=== PATIENT | male | born 1970 | race Caucasian/White ===

== ENCOUNTER 2017-05-20 08:03 | Day surgery (SDC) | payer OTHER ==
[2017-05-20] MEDS ORDERED: NS 1000 ML 1,000 ML ONE (08:11)
[2017-05-20] MEDS ORDERED: DIPRIVAN VIAL 20 ML ONE ×2 (10:09→10:27)
[2017-05-20] MEDS ORDERED: XYLOCAINE 2 % (PLAIN) ONE (10:09)
[2017-05-20] MEDS ORDERED: DIPRIVAN VIAL 10 ML ONE (10:41)
--- NOTE | 2017-05-20 11:05 | OR.GENERIC ---
Post-Op Note Generic - Post-Op Note Operative Report: Procedure Note May 20, 2017 Pre-Operative Diagnosis: Screening colonoscopy. Post-Operative Diagnosis: 1. Sigmoid polyp at 25 cm. 2. Grade I internal hemorrhoids. Procedure: Colonoscopy to cecum with polypectomy (cold biopsy forceps). Surgeon: Jairon Niño MD. Psychiatric Nurse Practitioner: Mykel Workman CRNA. Specimens: Sigmoid polyp at 25 cm. Estimated blood loss: Minimal. Complications: None. Summary: The patient is a 46 year old male who presented for a screening colonoscopy. The risk and benefits of the procedure including difficulty with anesthesia, bleeding, infection, as well as perforation were discussed with the patient. The patient understood these risks and requested the procedure. On May 20, 2017, the patient was brought to the endoscopy suite. A time out was performed verifying the patient and procedure. The patient was placed in a left lateral decubitus position. After satisfactory induction of monitored anesthesia care, a rectal exam was performed. The prostate was noted to be diffusely enlarged. Next, an endoscopy was advanced through the anus and directed to the cecum without difficulty. The scope was then withdrawn viewing all mucosal surfaces. The patients prep was adequate. The cecum, ascending, transverse, as well as descending portions of the colon were normal. Specifically, there were no masses, polyps, or diverticula. The scope was withdrawn through the sigmoid portion of the colon. No masses or diverticula were seen. However, a small polyp was seen at 25 cm. This appeared to be hyperplastic. This was biopsied using cold biopsy forceps and sent to pathology. The scope was withdrawn into the rectum and retroflexed. Grade I internal hemorrhoids were noted. The scope was straightened and insufflation evacuated. The scope was withdrawn and the procedure terminated. The patient was taken to the recovery room in stable condition. There were no complications.
[2017-05-20 11:44] VITALS: BP 148/81
== END 2017-05-20 11:09 | disposition home or self-care (01) | DRG 951 ==
LOC: SURG1 08:03
PROVIDERS: ATTEND Student in an Organized Health Care Education/Training Program
PROC: 0DBN8ZX Excision of Sigmoid Colon, Via Natural or Artificial Opening Endoscopic, Diagnostic (ICD-10-PCS; principal; 2017-05-20 10:30)
DX: Z12.11 Encounter for screening for malignant neoplasm of colon (principal); D12.5 Benign neoplasm of sigmoid colon; K64.0 First degree hemorrhoids; N40.0 Benign prostatic hyperplasia without lower urinary tract symptoms
CPT/HCPCS: J2001; J3490